=== PATIENT | male | born 1995 | race Caucasian/White ===

== ENCOUNTER 2016-06-06 17:48 | Emergency (ER) | payer BC ==
[~2016-06-06] VITALS: Ht 188 cm; Wt 86.4 kg
[2016-06-06 17:53] VITALS: TEMP 97.5
[2016-06-06 21:41] VITALS: BP 120/62; PULSE 68
== END 2016-06-06 21:46 | disposition home or self-care (01) ==
LOC: COL.ER 17:48
DX: S62.630B Displaced fracture of distal phalanx of right index finger, initial encounter for open fracture (principal); W30.89XA Contact with other specified agricultural machinery, initial encounter
CPT/HCPCS: J0690; J1170; J2405